=== PATIENT | male | born 1985 | race Caucasian/White ===

== ENCOUNTER 2020-03-07 20:21 | Emergency (ER) | payer MEDICAID ==
[~2020-03-07] VITALS: Ht 172.7 cm; Wt 108.9 kg
[~2020-03-07 20:21] MED LIST: NOR100 PO; TRU PO
[2020-03-07 20:28] VITALS: BP 161/90
--- NOTE | 2020-03-07 20:30 | NUR ---
TO LOBBY A/W BED AMBULATORY
[2020-03-07 20:33] VITALS: BP 161/90
[2020-03-07] MEDS ORDERED: ACETAMINOPHEN EXTRA STRENGTH 500 MG TAB PO ONE (21:30)
--- NOTE | 2020-03-07 21:44 | NUR ---
Patient discharged with v/s stable. Written and verbal after care instructions given and explained. Patient verbalized understanding. Ambulatory with steady gait. All questions addressed prior to discharge. Advised to follow up with PMD.
== END 2020-03-07 21:44 | disposition home or self-care (01) ==
LOC: MED 20:21
DX: R51.9 Headache, unspecified (principal); W22.8XXA Striking against or struck by other objects, initial encounter; Y93.89 Activity, other specified; Y92.89 Other specified places as the place of occurrence of the external cause; Y99.8 Other external cause status
CPT/HCPCS: 99282